=== PATIENT | female | born 1955 | race Asian ===

== ENCOUNTER 2017-10-06 09:01 | Emergency (ER) | payer MEDICAID ==
[~2017-10-06] VITALS: Ht 142.2 cm; Wt 68.0 kg
[~2017-10-06 09:01] MED LIST: PHEN100C12 PO
[2017-10-06] MEDS ORDERED: PHEN100C12 PO (09:30)
[2017-10-06 09:43] VITALS: BP 135/89
== END 2017-10-06 09:45 | disposition home or self-care (01) ==
LOC: ER 09:01
DX: G40.909 Epilepsy, unspecified, not intractable, without status epilepticus (principal); I10 Essential (primary) hypertension; G89.29 Other chronic pain; Z76.0 Encounter for issue of repeat prescription
CPT/HCPCS: 99283